=== PATIENT | female | born 1930 | race Caucasian/White ===

== ENCOUNTER 2020-08-24 16:21 | Emergency (ER) | payer OTHER, BC ==
[~2020-08-24] VITALS: Ht 170.2 cm; Wt 79.4 kg
[2020-08-24 17:18] LABS: URINE BILIRUBIN NEGATIVE (Negative); URINE BLOOD NEGATIVE (Negative); URINE CLARITY CLEAR; URINE COLOR YELLOW; URINE GLUCOSE-RANDOM* NEGATIVE (Negative); URINE KETONES NEGATIVE (Negative); URINE LEUKOCYTES-REFLEX TRACE (Negative); URINE NITRITE-REFLEX NEGATIVE (Negative); URINE PROTEIN (DIPSTICK) NEGATIVE (Negative); URINE SPECIFIC GRAVITY <= 1.005 (1.005-1.035); URINE UROBILINOGEN 0.2 E.U./dl (0.2-1.0)
[2020-08-24 18:03] LABS: HEMOGLOBIN 13.6 gm/dL (12.0-15.0); MCH 31.4 pg (26.0-34.0); MCV 95.1 fL (80.0-100.0); PLATELET COUNT 205 thou/uL (150-400); RBC 4.32 mil/uL (4.20-5.00); RDW 13.2 % (10.5-14.5); WBC 7.1 thou/uL (4.0-11.0)
[2020-08-24 18:07] LABS: CREATININE 1.7 mg/dL (0.6-1.0); POTASSIUM 4.8 mmol/L (3.5-5.1)
[2020-08-24 18:13] LABS: ALBUMIN 3.4 g/dL (3.4-5.0); TOTAL BILIRUBIN 0.8 mg/dL (0.2-1.0); TOTAL PROTEIN 7.5 g/dL (6.4-8.2)
[2020-08-24 18:29] LABS: ABSOLUTE NEUTROPHILS 5.3 thou/uL (1.4-8.2); ANISOCYTOSIS 1+
[2020-08-24] MEDS ORDERED: OMEPRAZOLE10 MG PO (21:15)
[2020-08-24 21:30] VITALS: BP 155/63
[2020-08-24] MEDS ORDERED: ELIQUIS2.5 MG PO (21:37)
[2020-08-24] MEDS ORDERED: LIPITOR 20 MG T20 M1 PO (21:37)
[2020-08-24] MEDS ORDERED: BUSPIRONE HCL7.5 MG PO (21:38)
--- NOTE | 2020-08-25 07:22 | EKG ---
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: [facility] : 1930 Requested By: [place] Order Number: [id number] : Reynaldo Jett Measurements Intervals [place] Rate: 91 P: DE: QRS: -12 QRSD: 97 T: -20 QT: 379 QTc: 467 Interpretive Statements Atrial fibrillation Inferior infarct, 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
== END 2020-08-24 21:54 | disposition home or self-care (01) ==
LOC: ER 16:21
PROVIDERS: Emergency Medicine
DX: R10.9 Unspecified abdominal pain (principal); I13.0 Hypertensive heart and chronic kidney disease with heart failure and stage 1 through stage 4 chronic kidney disease, or unspecified chronic kidney disease; N18.30 Chronic kidney disease, stage 3 unspecified; I50.9 Heart failure, unspecified; I48.91 Unspecified atrial fibrillation; K21.9 Gastro-esophageal reflux disease without esophagitis; M19.90 Unspecified osteoarthritis, unspecified site; Z87.891 Personal history of nicotine dependence; Z88.1 Allergy status to other antibiotic agents; Z88.2 Allergy status to sulfonamides; Z88.7 Allergy status to serum and vaccine; Z79.01 Long term (current) use of anticoagulants; Z98.890 Other specified postprocedural states; Z90.49 Acquired absence of other specified parts of digestive tract